=== PATIENT | female | born 1955 | race Caucasian/White ===

== ENCOUNTER 2016-12-27 20:18 | Observation (INO) | payer OTHER ==
[~2016-12-27] VITALS: Ht 165.1 cm; Wt 62.1 kg
[2016-12-27] MEDS ORDERED: ZESTRIL5 MG PO (20:29)
[2016-12-27] MEDS ORDERED: LIPITOR20 MG PO (20:30)
[2016-12-27] MEDS ORDERED: TIROSINT25 MCG PO (20:31)
--- NOTE | 2016-12-27 23:20 | NUR ---
PT ARRIVES TO ROOM 126, MED SURG OBSERVATION FOR A SYNCOPAL EPISODE AT HOME. PT WALKS SELF TO BED, DENIES LIGHTHEADEDNESS OR PAIN. ASSESSMENT DONE, PT DENIES NEEDS. IVF STARTED. HR IN THE 60'S. PT STATES HER NORMAL RESTING HR IS IN THE 50'S. ALERT AND ORIENTED, CALL LIGHT IN HAND.
--- NOTE | 2016-12-27 23:30 | NUR ---
PT GIVEN PO KCL. DENIES NEEDS AT THIS TIME.
--- NOTE | 2016-12-28 00:48 | NUR ---
PT RESTING IN BED, DENIES NEEDS/PAIN.
--- NOTE | 2016-12-28 03:00 | NUR ---
PT RESTING WITH EYES CLOSED, RESP EVEN AND UNLABORED.
--- NOTE | 2016-12-28 05:00 | NUR ---
PT RESTING WITH EYES CLOSED, RESP EVEN AND UNLABORED. HR 49.
--- NOTE | 2016-12-28 06:27 | NUR ---
UP TO BR TO VOID THEN BACK TO BED.
--- NOTE | 2016-12-28 08:00 | NUR ---
PT AWAKE. VITALS AND ASSESSMENT DONE. PT REPORTS NO PAIN. GIVEN THYROID MEDICATION AND SOME COFFEE.
--- NOTE | 2016-12-28 09:00 | NUR ---
PT UP TO BATHROOM TO VOID AND NOW TO CHAIR. PT ORDERED BREAKFAST. NO DIZZINESS NOTED. PT VISITING ON PHONE.
--- NOTE | 2016-12-28 10:30 | NUR ---
ORTHOSTATIC VITALS SIGNS DONE AND REPORTED TO DR GARCIA AND IV FLUIDS DISCONTINUED. PT SALINE LOCKED. HEART RATE REMAINS STEADY IN 50'S NO ECTOPY NOTED. PT VISITING WITH FAMILY.
--- NOTE | 2016-12-28 11:45 | NUR ---
PT HAD VITALS DONE. NO CHANGES AT PRESENT.
[2016-12-28] MEDS ORDERED: AMLODIPINE BESYL5 MG PO (12:49)
[2016-12-28] MEDS ORDERED: CRANBERRY200 MG PO (13:05)
[2016-12-28] MEDS ORDERED: CENTRUM SILVER1 EAC3 PO (13:05)
[2016-12-28] MEDS ORDERED: FISH OIL 1,0001 EAC2 PO (13:06)
[2016-12-28] MEDS ORDERED: CALCIUM + VITA1 EACH PO (13:07)
--- NOTE | 2016-12-28 13:08 | NUR ---
MED REC COMPLETE--PER PATIENT
--- NOTE | 2016-12-28 14:39 | NUR ---
PT SITTING UP IN CHAIR. NO COMPLAINTS OR SYMPTOMS OF SYNCOPE. HEART RATE REMAINS IN 50'S. VITALS AND ASSESSMENT DONE. CONTINUE TO MONITOR.
--- NOTE | 2016-12-28 16:11 | NUR ---
PT HAD IV DISCONTINUED. TELE OFF. DISCHARGE INSTRUCTIONS GIVEN BY DR GARCIA, PHARMACY, AND NURSE. PT STATED UNDERSTANDING OF THIS. PT WALKED OUT BY STAFF TO RIDE HOME BY .
--- NOTE | 2016-12-29 15:32 | EKG ---
[facility] [address] [place] [address] Signed Marked sinus bradycardia Abnormal ECG No previous ECGs available Confirmed by LINDA GARCIA MD ([id number] on 12/29/2016 3:32:31 PM Electronically Signed By: LINDA GARCIA MD 12/29/16 1532 PATIENT NAME: KANDIS CLEANING Electrocardiogram DATE OF : 51 PHYSICIAN: LINDA GARCIA MD REPORT #: [id number] REPORT IS CONFIDENTIAL AND NOT TO BE RELEASED WITHOUT AUTHORIZATION
== END 2016-12-28 16:12 | disposition home or self-care (01) ==
LOC: ED 20:18 → CCU 20:20
PROVIDERS: ADMIT Internal Medicine
DX: R55 Syncope and collapse (principal); I10 Essential (primary) hypertension; E78.5 Hyperlipidemia, unspecified; E03.9 Hypothyroidism, unspecified; R00.0 Tachycardia, unspecified; Z79.899 Other long term (current) drug therapy
CPT/HCPCS: 71010; 80053; 83735; 84484; 85025; 93005; 93010; 96360; 99285; G0378; J7030; J7120